=== PATIENT | male | born 1990 | race Caucasian/White ===

== ENCOUNTER 2017-06-24 18:42 | Emergency (ER) | payer MEDICAID ==
[~2017-06-24] VITALS: Ht 185.4 cm; Wt 117.9 kg
[2017-06-24 21:10] VITALS: BP 151/102
== END 2017-06-24 21:50 | disposition home or self-care (01) ==
LOC: ER 18:42
DX: S92.354A Nondisplaced fracture of fifth metatarsal bone, right foot, initial encounter for closed fracture (principal); Z88.8 Allergy status to other drugs, medicaments and biological substances; W18.31XA Fall on same level due to stepping on an object, initial encounter; Y93.89 Activity, other specified; Y92.89 Other specified places as the place of occurrence of the external cause; Y99.8 Other external cause status
CPT/HCPCS: 99282; L3260

== ENCOUNTER 2017-08-27 14:13 | Emergency (ER) | payer MEDICAID ==
[~2017-08-27] VITALS: Ht 185.4 cm; Wt 120.2 kg
[2017-08-27 15:00] LABS: Basophils # (auto) 0.1 uL; Basophils % (auto) 0.6 % (0.0-2.0); Eosinophils # (auto) 0 uL; Eosinophils % (auto) 0.3 % (0.0-7.0); Hematocrit 51.1 % (41.0-53.0); Hemoglobin 17.3 g/dL (13.5-17.5); Lymphocytes # (auto) 1.6 uL; Lymphocytes % (auto) 17.4 % (10.0-50.0); Mean Corpuscular Hgb Conc. 33.7 g/dL (32.0-36.0); Mean Corpuscular Volume 97.7 fL (80.0-100.0); Mean Platelet Volume 7.3 fL (6.9-10.8); Monocytes # (auto) 0.7 uL; Neutrophils # (auto) 6.8 uL; Neutrophils % (auto) 73.7 % (37.0-80.0); Nucleated Red Blood Cells % 0.1 %; Platelet Count (auto) 343 10^3/uL (140-450); Red Cell Distribution Width 15.3 % (11.8-14.3); White Blood Cell 9.2 10^3/uL (4.4-10.8)
[2017-08-27 15:17] LABS: Albumin 3.9 g/dL (3.4-5.0); Calcium 8.5 mg/dL (8.5-10.1)
[2017-08-27 15:20] LABS: Bilirubin, Total 0.4 mg/dL (0.2-1.0); Total Protein 8.5 g/dL (6.4-8.2)
[2017-08-27 22:13] VITALS: BP 134/92
[2017-08-27] MEDS ORDERED: cloNIDine HCL 0.1 MG TAB PO ONE (22:15)
== END 2017-08-27 23:10 | disposition home or self-care (01) ==
LOC: ER 14:13
DX: I10 Essential (primary) hypertension (principal); R00.0 Tachycardia, unspecified; F41.9 Anxiety disorder, unspecified; F10.10 Alcohol abuse, uncomplicated; Z88.8 Allergy status to other drugs, medicaments and biological substances
CPT/HCPCS: 36415; 71020; 80053; 85025; 93005